=== PATIENT | male | born 1970 | race Caucasian/White ===

== ENCOUNTER 2016-10-28 09:47 | Inpatient (IN) | payer OTHER ==
[~2016-10-28] VITALS: Ht 177.8 cm; Wt 82.6 kg
[2016-10-28] MEDS ORDERED: ACETAMINOPHEN 325 MG TABLET PO PRN (22:00)
[2016-10-28] MEDS ORDERED: LORAZEPAM 2 MG/1 ML VIAL IM PRN (22:00)
[2016-10-28] MEDS ORDERED: THIAMINE HCL 200 MG/2 ML VIAL IM ONE (22:00)
[2016-10-28] MEDS ORDERED: ONDANSETRON ODT 4 MG TAB.RAPDIS SL PRN (22:00)
[2016-10-28] MEDS ORDERED: DICYCLOMINE HCL 20 MG TABLET PO PRN (22:00)
[2016-10-28] MEDS ORDERED: CLONIDINE HCL 0.1 MG TABLET PO PRN (22:00)
[2016-10-28] MEDS ORDERED: IBUPROFEN 400 MG TABLET PO PRN (22:00)
[2016-10-28] MEDS ORDERED: MIRALAX 17 GM POWD.PACK PO PRN (22:00)
[2016-10-28] MEDS ORDERED: diphenhydrAMINE 50 MG CAPSULE PO PRN (22:00)
[2016-10-28] MEDS ORDERED: MAG HYDROX/AL HYDROX/SIMETH 30 ML LIQUID UDC PO PRN (22:00)
[2016-10-28] MEDS ORDERED: ONDANSETRON 4 MG/2 ML VIAL IM PRN (22:00)
[2016-10-28] MEDS ORDERED: LORAZEPAM 1 MG TABLET PO PRN ×2 (22:00)
[2016-10-28] MEDS ORDERED: MAGNESIUM HYDROXIDE 30 ML LIQUID UDC PO PRN (22:00)
[2016-10-28] MEDS ORDERED: LOPERAMIDE HCL 2 MG CAPSULE PO PRN ×2 (22:00)
[2016-10-28 22:15] VITALS: BP 143/93
[2016-10-28] MEDS ORDERED: LISI-603 PO (22:50)
[2016-10-28] MEDS ORDERED: METR45CR TP (22:50)
[2016-10-28] MEDS ORDERED: ATOR10TA PO (22:50)
[2016-10-28] MEDS ORDERED: OMEP20CA10 PO (22:50)
[2016-10-28] MEDS ORDERED: ASPI81TA31 PO (22:50)
[2016-10-28 23:15] LABS: *AMPHETAMINE, URINE NEGATIVE (NEGATIVE); *BARBITURATE, URINE NEGATIVE (NEGATIVE); *CANNABINOID, URINE NEGATIVE (NEGATIVE); *COCCAINE, URINE NEGATIVE (NEGATIVE); *OPIATE, URINE NEGATIVE (NEGATIVE); *PHENCYCLIDINE SCREEN,URINE NEGATIVE (NEGATIVE)
[2016-10-28 23:19] LABS: ALANINE AMINOTRANSFERASE 44 U/L (16-63); ALKALINE PHOSPHATASE 66 U/L (50-136); AMYLASE 47 U/L (25-115); ASPARTATE AMINOTRANSFERASE 27 U/L (15-37); BILIRUBIN,TOTAL 0.3 mg/dL (0.2-1.0); CARBON DIOXIDE 28 mmol/L (21-32); CHLORIDE 105 mmol/L (98-107); CREATININE 1.4 mg/dL (0.6-1.3); GLUCOSE 97 mg/dL (74-106); LIPASE 145 U/L (73-393); MAGNESIUM 1.9 mg/dL (1.8-2.4); POTASSIUM 4.1 mmol/L (3.5-5.1); UREA NITROGEN, BLOOD 26 mg/dL (7-18)
[2016-10-28 23:26] LABS: ETHANOL < 3 MG/DL (0-0)
[2016-10-28 23:29] LABS: THYROID STIMULATING HORMONE 3.171 mIU/mL (0.358-3.740)
[2016-10-28 23:30] LABS: BASOPHILS % (AUTO) 0.4 % (0.0-2.0); EOSINOPHILS # (AUTO) 0.1 K/uL (0.0-0.7); EOSINOPHILS % (AUTO) 1.4 % (0.0-7.0); HEMATOCRIT 39.9 % (40-50); HEMOGLOBIN 13.5 G/DL (14.0-18.0); LYMPHOCYTES # (AUTO) 2.8 K/UL (0.8-4.8); LYMPHOCYTES % (AUTO) 41.2 % (20.5-51.5); MEAN CORPUSCULAR HEMOGLOBIN 33.1 UUG (27.0-31.0); MEAN CORPUSCULAR HGB CONC 34 g/dL (32.0-37.0); MEAN CORPUSCULAR VOLUME 97.6 FL (82.0-92.0); MONOCYTES # (AUTO) 0.5 K/UL (0.1-1.30); MONOCYTES % (AUTO) 7.4 % (0.0-11.0); NEUTROPHILS # (AUTO) 3.4 K/UL (1.8-8.9); NEUTROPHILS % (AUTO) 49.6 % (38.5-71.5); PLATELET COUNT (AUTO) 244 K/UL (150-450); RED BLOOD CELL COUNT(AUTO) 4.08 MIL/UL (4.7-6.1); WHITE BLOOD COUNT (AUTO) 6.8 K/UL (4.0-11.2)
[2016-10-28] MEDS ORDERED: LORAZEPAM 1 MG TABLET PO SCH (23:45)
[2016-10-28] MEDS ORDERED: THIAMINE HCL 200 MG/2 ML VIAL ONE (23:46)
[2016-10-29] VITALS: BP 133/97
[2016-10-29] MEDS ORDERED: LORAZEPAM 1 MG TABLET ONE (00:07)
[2016-10-29 08:00] VITALS: BP 131/94
[2016-10-29] MEDS: MULTIVITAMINS,THERAPEUTIC TABLET PO SCH (08:43)
[2016-10-29] MEDS: THIAMINE HCL 100 MG TABLET PO SCH (08:44)
[2016-10-29] MEDS: FOLIC ACID 1 MG TABLET PO SCH (08:44)
[2016-10-29] MEDS ORDERED: LORAZEPAM 1 MG TABLET PO SCH (09:00)
[2016-10-29] MEDS: OMEPRAZOLE 10 MG PO SCH (09:00)
[2016-10-29] MEDS: LISINOPRIL 20 MG PO SCH (09:00)
[2016-10-29] MEDS: ASPIRIN 81 MG PO SCH (09:00)
[2016-10-29] MEDS ORDERED: TUBERCULIN,PURIF.PROT.DERIV. 5 TU/0.1 ML TEST ID ONE (09:00)
[2016-10-29 14:43] VITALS: BP 122/89
[2016-10-29] MEDS: LORAZEPAM 1 MG TABLET PO SCH ×2 (15:00→21:22)
[2016-10-29 16:00] VITALS: BP 130/91
[2016-10-29 20:00] VITALS: BP 131/88
[2016-10-29] MEDS: ATORVASTATIN 10 MG PO SCH (21:22)
[2016-10-30] VITALS: BP 121/81
[2016-10-30] MEDS: OMEPRAZOLE 10 MG PO SCH (06:56)
[2016-10-30 08:00] VITALS: BP 120/90
[2016-10-30] MEDS: THIAMINE HCL 100 MG TABLET PO SCH (08:23)
[2016-10-30] MEDS: MULTIVITAMINS,THERAPEUTIC TABLET PO SCH (08:23)
[2016-10-30] MEDS: LORAZEPAM 1 MG TABLET PO SCH ×3 (08:23→21:14)
[2016-10-30] MEDS: FOLIC ACID 1 MG TABLET PO SCH (08:23)
[2016-10-30] MEDS: LISINOPRIL 20 MG PO SCH (08:24)
[2016-10-30] MEDS: ASPIRIN 81 MG PO SCH (08:25)
[2016-10-30] MEDS ORDERED: LORAZEPAM 1 MG TABLET PO SCH (09:00)
[2016-10-30 10:12] LABS: HEPATITIS B SURFACE AG Negative (Negative)
[2016-10-30 12:00] VITALS: BP 120/84
[2016-10-30 16:00] VITALS: BP 124/69
[2016-10-30 20:00] VITALS: BP 122/85
[2016-10-30] MEDS: ATORVASTATIN 10 MG PO SCH (21:14)
[2016-10-31] MEDS: OMEPRAZOLE 10 MG PO SCH (06:56)
[2016-10-31 08:00] VITALS: BP 122/84
[2016-10-31] MEDS: THIAMINE HCL 100 MG TABLET PO SCH (08:34)
[2016-10-31] MEDS: ASPIRIN 81 MG PO SCH (08:34)
[2016-10-31] MEDS: LISINOPRIL 20 MG PO SCH (08:34)
[2016-10-31] MEDS: FOLIC ACID 1 MG TABLET PO SCH (08:34)
[2016-10-31] MEDS: MULTIVITAMINS,THERAPEUTIC TABLET PO SCH (08:34)
[2016-10-31] MEDS: LORAZEPAM 1 MG TABLET PO SCH ×2 (08:34→21:17)
[2016-10-31 08:49] LABS: CREATININE 1.3 mg/dL (0.6-1.3); MAGNESIUM 2.1 mg/dL (1.8-2.4); POTASSIUM 4.3 mmol/L (3.5-5.1)
[2016-10-31] MEDS ORDERED: LORAZEPAM 1 MG TABLET PO SCH (09:00)
[2016-10-31 12:00] VITALS: BP 108/80
[2016-10-31 16:00] VITALS: BP 123/82
[2016-10-31 20:00] VITALS: BP 123/84
[2016-10-31] MEDS: ATORVASTATIN 10 MG PO SCH (21:17)
[2016-11-01] MEDS: OMEPRAZOLE 10 MG PO SCH (06:45)
[2016-11-01 08:00] VITALS: BP 130/85
[2016-11-01] MEDS ORDERED: LORAZEPAM 1 MG TABLET PO SCH (09:00)
[2016-11-01] MEDS: MULTIVITAMINS,THERAPEUTIC TABLET PO SCH (09:53)
[2016-11-01] MEDS: THIAMINE HCL 100 MG TABLET PO SCH (09:53)
[2016-11-01] MEDS: FOLIC ACID 1 MG TABLET PO SCH (09:53)
[2016-11-01] MEDS: ASPIRIN 81 MG PO SCH (09:54)
[2016-11-01] MEDS: LISINOPRIL 20 MG PO SCH (09:54)
[2016-11-01] MEDS ORDERED: DIPH50CA37 PO (10:18)
[2016-11-01] MEDS ORDERED: HYDR-500 PO (10:18)
[2016-11-01] MEDS ORDERED: IBUP-1953 PO (10:18)
[2016-11-01 12:00] VITALS: BP 121/89
[2016-11-01 16:00] VITALS: BP 113/86
[2016-11-01 17:16] LABS: *AMPHETAMINE, URINE NEGATIVE (NEGATIVE); *BARBITURATE, URINE NEGATIVE (NEGATIVE); *CANNABINOID, URINE NEGATIVE (NEGATIVE); *COCCAINE, URINE NEGATIVE (NEGATIVE); *OPIATE, URINE NEGATIVE (NEGATIVE); *PHENCYCLIDINE SCREEN,URINE NEGATIVE (NEGATIVE)
[2016-11-01 20:00] VITALS: BP 123/86
[2016-11-01] MEDS: ATORVASTATIN 10 MG PO SCH (20:49)
[2016-11-02] MEDS: OMEPRAZOLE 10 MG PO SCH (07:21)
[2016-11-02] MEDS: THIAMINE HCL 100 MG TABLET PO SCH (07:56)
[2016-11-02] MEDS: LISINOPRIL 20 MG PO SCH (07:56)
[2016-11-02] MEDS: FOLIC ACID 1 MG TABLET PO SCH (07:56)
[2016-11-02] MEDS: MULTIVITAMINS,THERAPEUTIC TABLET PO SCH (07:56)
[2016-11-02] MEDS: ASPIRIN 81 MG PO SCH (07:57)
[2016-11-02 08:06] VITALS: BP 129/80
== END 2016-11-02 09:15 | disposition other institution (70) | DRG 895 ==
LOC: SRC 21:43
PROVIDERS: ADMIT Internal Medicine; ATTEND Internal Medicine
PROC: HZ2ZZZZ Detoxification Services for Substance Abuse Treatment (ICD-10-PCS; principal; 2016-10-28)
PROC: HZ41ZZZ Group Counseling for Substance Abuse Treatment, Behavioral (ICD-10-PCS; 2016-10-29)
PROC: HZ31ZZZ Individual Counseling for Substance Abuse Treatment, Behavioral (ICD-10-PCS; 2016-10-30)
DX: F10.230 Alcohol dependence with withdrawal, uncomplicated (principal); N17.9 Acute kidney failure, unspecified; Y90.0 Blood alcohol level of less than 20 mg/100 ml; Z98.890 Other specified postprocedural states; E78.5 Hyperlipidemia, unspecified; I10 Essential (primary) hypertension; K21.9 Gastro-esophageal reflux disease without esophagitis; E86.0 Dehydration; H81.10 Benign paroxysmal vertigo, unspecified ear; D53.9 Nutritional anemia, unspecified; Z82.49 Family history of ischemic heart disease and other diseases of the circulatory system
CPT/HCPCS: 36415; 70030-TC; 80307; 82746; 83690; 83735; 84443; 85025; 86580; 86592; 86705; 86803; 87340; 87806; G0480; J3411